=== PATIENT | male | born 1955 | race Caucasian/White ===

== ENCOUNTER 2019-11-06 06:58 | Day surgery (SDC) | payer OTHER ==
--- NOTE | 2019-11-01 19:08 | EKG REPORT ---
SEVERITY:- OTHERWISE NORMAL ECG - SINUS RHYTHM BORDERLINE RIGHT AXIS DEVIATION : Confirmed by: Catalina Costa MD 01-Nov-2019 19:07:19
[~2019-11-06 06:58] MED LIST: LACTATED RINGERS 1000 ML IV PRN; LIDOCAINE 0.5% INJ-PF (5 MG/ML) 50 ML SDV SUBCUT PRN
[2019-11-06] MEDS ORDERED: FENTANYL CITRATE INJ/PF 100 MCG/2 ML AMPUL ONE (07:27)
[2019-11-06] MEDS ORDERED: MIDAZOLAM 2 MG/2 ML INJ ONE (07:27)
[2019-11-06] MEDS ORDERED: PROPOFOL INJ 200 MG/20 ML VIAL IV ONE (07:27)
[2019-11-06] MEDS ORDERED: PROMETHAZINE HCL INJ 25 MG/1 ML VIAL IV PRN ×2 (08:28)
[2019-11-06] MEDS ORDERED: MEPERIDINE HCL/PF INJ 25 MG/1 ML DISP.SYRIN IV PRN (08:28)
[2019-11-06] MEDS ORDERED: OXYCODONE-ACETAMINOPHEN 5-325 MG TABLET PO PRN ×2 (08:28)
[2019-11-06] MEDS ORDERED: DIPHENHYDRAMINE HCL 50 MG/ML VIAL IV PRN (08:28)
[2019-11-06] MEDS ORDERED: FENTANYL CITRATE INJ/PF 100 MCG/2 ML AMPUL IV PRN ×3 (08:28)
--- NOTE | 2019-11-06 09:21 | Discharge Summary ---
Discharge Summary (SDC) - Discharge Final Diagnosis: anal stenosis Date of Surgery: 11/06/19 Discharge Date: 11/06/19 Condition: Good Forms: ASU Anesthesia D/C Instruction, Discharge POC-Surgical Service Treatment or Instructions: [address] [address] POST ENDOSCOPY DISCHARGE INSTRUCTIONS 1. Diet: Start clear liquids that a regular diet as tolerated. 2. Resume all preoperative medications. All oral anticoagulants and aspirins can be resumed 24 hours after procedure. 3. If a polypectomy was performed some bleeding per rectum may occur. This should stop within 3 days. If not, please contact the office. 4. If you had a colonoscopy you may experience some bloating and delayed return of normal bowel function for several days, your regular bowel movement pattern should resume within a week. 5. Please contact [facility] at to make an appointment with Dr. Patel for 1 to 3 weeks following procedure. 6. If you have any questions or concerns regarding your care,treatment plan or follow up, please contact our office. Referrals: HARLEY PATEL MD [ACTIVE STAFF] - 11/14/19 8:15 am Discharge Diet: As Tolerated Discharge Activity: Activity As Tolerated Report the Following to Your Physician Immediately: Nausea, Vomiting, Increase in Pain, Fever over 101 Degrees, Unusual Bleeding, Redness
--- NOTE | 2019-11-06 09:26 | Operative Report ---
Operative Report DATE OF SURGERY: 11/06/19 PREOPERATIVE DIAGNOSIS: 1. History of pelvic radiation, low anterior resection, protective ileostomy. 2. Anal pain POSTOPERATIVE DIAGNOSIS: Same with near complete anal stenosis due to scarring OPERATION: 1. Exam under anesthesia of the anus. 2. Limited flexible anoscopy. 3. Anal canal biopsies x2 SURGEON: HARLEY STALLINGS ANESTHESIA: LMAC TISSUE REMOVED OR ALTERED: Biopsies of anal canal COMPLICATIONS: None ESTIMATED BLOOD LOSS: Scant INTRAOPERATIVE FINDINGS: See below PROCEDURE: Patient was taken to the preop ambulatory area to the main operating room where LMAC anesthesia was induced. He is placed in the left lateral cubitus position. Surgical plan and surgical timeout were conducted. The perianal tissue was examined. There was no evidence of excoriation, or lesion. Lidocaine jelly was placed in the anal canal and index finger inserted into the canal to approximately 4- 5 cm. There was a mechanical blockage. The index finger was removed and the flexible adult colonoscope was advanced just inside the anal canal. The distal anal canal mucosa was viable, intact, then tapered to a very narrow opening, perhaps 2 to 3 mm diameter. Photos were taken. There was no evidence of tumor recurrence, or ulceration. 2 random biopsies of the anal canal mucosa at the point of tapering were taken with the cold forceps device and sent as anal canal biopsies. There was no way to advance the scope through this very narrow aperture. 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 The patient tolerated the procedure well. Was taken to recovery in stable condition. The results of the findings were shared with the patient's , and Dr. Schafer. Recommendations: 1. Continue current medical management per oncology service 2. No indication for further diagnostic or therapeutic intervention regarding patient's anal canal. Patient has fecal stream diverted via ileostomy. The anal stenosis is at least able to allow egress of mucus the proximal colon.
[2019-11-06 10:22] VITALS: BP 121/71
== END 2019-11-06 09:55 | disposition home or self-care (01) ==
LOC: OROUT 06:58
PROVIDERS: ATTEND Surgery
DX: K52.9 Noninfective gastroenteritis and colitis, unspecified (principal); K56.699 Other intestinal obstruction unspecified as to partial versus complete obstruction; E46 Unspecified protein-calorie malnutrition; Z85.048 Personal history of other malignant neoplasm of rectum, rectosigmoid junction, and anus; Z93.2 Ileostomy status; E78.00 Pure hypercholesterolemia, unspecified; Z79.899 Other long term (current) drug therapy; Z68.1 Body mass index [BMI] 19.9 or less, adult; Z85.05 Personal history of malignant neoplasm of liver; Z87.891 Personal history of nicotine dependence; Z03.818 Encounter for observation for suspected exposure to other biological agents ruled out
CPT/HCPCS: 46606; 93005; 87635; 88305 ×2; 93010; J2250; J3010; J2704; C9803; 902

== ENCOUNTER 2020-01-18 13:02 | Inpatient (IN) | payer OTHER ==
--- NOTE | 2020-01-18 13:24 | ER Document Report ---
ED Medical Screen (RME) - General Chief Complaint: Rectal Pain Stated Complaint: RETCAL DISCHARGE Time Seen by Provider: 01/18/20 13:22 Primary Care Provider: RENEE SMALLWOOD MD [Primary Care Provider] - Follow up as needed Notes: HPI: 64-year-old male with history of colorectal cancer who is been in remission who follows with Dr. Farley presenting for 2 days of worsening abdominal pain, passing stool and feces from the rectum. States that he had an ileostomy placed by Dr. Patel and had a limited colonoscopy over a month ago. States that he still has some lower bowel that is not attached to the bowel for the ileostomy as far as he is aware. Has not had fever or nausea. Saw his oncologist several days ago but was not having this issue then. PHYSICAL EXAMINATION: Limited exam in triage, rectal exam deferred in triage. Ileostomy right lower quadrant region and appears to have pink stoma I have greeted and performed a rapid initial assessment of this patient. A comprehensive ED assessment and evaluation of the patient, analysis of test results and completion of medical decision making process will be conducted by an additional ED providers. TRAVEL OUTSIDE OF THE [place] IN LAST 30 DAYS: No - Related Data Allergies/Adverse Reactions: No Known Allergies Allergy (Verified 11/06/19 07:09) Past Medical History - Social History Frequency of alcohol use: None Drug Abuse: None - Past Medical History Cardiac Medical History: Denies: Hx Coronary Artery Disease, Hx Heart Attack, Hx Hypertension Pulmonary Medical History: Denies: Hx Asthma, Hx Bronchitis, Hx COPD, Hx Pneumonia Neurological Medical History: Denies: Hx Cerebrovascular Accident, Hx Seizures Musculoskeltal Medical History: Denies Hx Arthritis - Immunizations Hx Diphtheria, Pertussis, Tetanus Vaccination: - UNSURE Physical Exam - Vital signs Vitals: Temp Pulse Resp BP Pulse Ox 98.1 F 94 20 104/79 96 01/18/20 13:07 01/18/20 13:07 01/18/20 13:07 01/18/20 13:07 01/18/20 13:07 Course - Vital Signs Vital signs: Temp Pulse Resp BP Pulse Ox 98.1 F 94 20 104/79 96 01/18/20 13:07 01/18/20 13:07 01/18/20 13:07 01/18/20 13:07 01/18/20 13:07 Doctor's Discharge - Discharge Referrals: RENEE SMALLWOOD MD [Primary Care Provider] - Follow up as needed
[2020-01-18 13:56] LABS: ABSOLUTE BASOPHILS # (AUTO) 0.1 10^3/uL (0.0-0.2); ABSOLUTE LYMPHOCYTES (AUTO) 1.7 10^3/uL (0.5-4.7); ABSOLUTE MONOCYTES (AUTO) 0.9 10^3/uL (0.1-1.4); ABSOLUTE NEUT (AUTO) 12.6 10^3/uL (1.7-8.2); BASOPHILS % (AUTO) 0.7 % (0-2); EOSINOPHILS % (AUTO) 0.1 % (0-6); HEMATOCRIT 39.9 % (37.9-51.0); HEMOGLOBIN 13.6 g/dL (13.5-17.0); LYMPHOCYTES % (AUTO) 10.9 % (13-45); MEAN CORPUSCULAR HEMOGLOBIN 30.3 pg (27.0-33.4); MEAN CORPUSCULAR HGB CONC 34.2 g/dL (32.0-36.0); MEAN CORPUSCULAR VOLUME 89 fl (80-97); MONOCYTES % (AUTO) 5.8 % (3-13); PLATELET COUNT 332 10^3/uL (150-450); RED BLOOD COUNT 4.51 10^6/uL (4.35-5.55); RED CELL DISTRIBUTION WIDTH 14.2 % (11.5-14.0); SEGMENTED NEUTROPHILS % (AUTO) 82.5 % (42-78); TOTAL CELLS COUNTED % (AUTO) 100 %; WHITE BLOOD COUNT 15.2 10^3/uL (4.0-10.5)
[2020-01-18 14:13] LABS: ALBUMIN 5.1 g/dL (3.5-5.0); ALKALINE PHOSPHATASE 58 U/L (38-126); ASPARTATE AMINO TRANSFERASE 37 U/L (17-59); BILIRUBIN,DIRECT 0.2 mg/dL (0.0-0.4); BILIRUBIN,TOTAL 1.1 mg/dL (0.2-1.3); BLOOD UREA NITROGEN 45 mg/dL (7-20); CALCIUM 10.5 mg/dL (8.4-10.2); CARBON DIOXIDE 16 mmol/L (22-30); CHLORIDE 100 mmol/L (98-107); GLUCOSE 130 mg/dL (75-110); POTASSIUM 5.1 mmol/L (3.6-5.0); TOTAL PROTEIN 9.4 g/dL (6.3-8.2)
[2020-01-18 14:16] LABS: ANION GAP 20 (5-19)
[2020-01-18] MEDS ORDERED: MORPHINE SULFATE 10 MG/ML INJ IV ONE (14:35)
[2020-01-18] MEDS ORDERED: NORMAL SALINE 1000 ML 1,000 ML IV ONE (14:39)
--- NOTE | 2020-01-18 14:39 | ER Document Report ---
ED GI/ - General Chief Complaint: Rectal Pain Stated Complaint: RETCAL DISCHARGE Time Seen by Provider: 01/18/20 13:22 Primary Care Provider: RENEE SMALLWOOD MD [Primary Care Provider] - Follow up as needed Notes: HPI: 64-year-old male with past medical history as recorded including colorectal cancer with an ileostomy and bowel resection around 2 years ago. Patient is followed by the oncologist Dr. Alexandra here. No recent chemotherapy or radiation for the last 6 months. Patient states he sometimes has some very clear discharge from the rectal region but over the last 2 days he initially had some bloody discharge followed by "fecal looking" discharge. He states some diffuse upper and lower abdominal intermittent pain with no radiation to the back. No vomiting or fevers. No chest pain or shortness of breath. ROS: See HPI All other review of systems reviewed and otherwise negative Reviewed vital signs and nursing note as charted by RN. PHYSICAL EXAM: CONSTITUTIONAL: Alert and oriented and responds appropriately to questions. Well-appearing; well-nourished HEAD: Normocephalic; atraumatic EYES: Sclera is pale ENT: Normal nose; no rhinorrhea; moist mucous membranes; pharynx without lesions noted NECK: Supple without meningismus; non-tender; no cervical lymphadenopathy, no masses CARD: Regular rate and rhythm; no murmurs; symmetric distal pulses RESP: Normal chest excursion without splinting or tachypnea; breath sounds clear and equal bilaterally; no wheezes, no rhonchi, no rales ABD/GI: Normal bowel sounds; non-distended; soft, ileostomy in place with a pink stump with no surrounding erythema. Discharge in the ileostomy is a brownish colored fluid without any obvious blood : With football scout present I did perform a rectal examination showing no obvious perirectal lesions. No tenderness to digital insertion. Brown-colored stool like material that is Hemoccult positive BACK: The back appears normal and is non-tender to palpation EXT: Normal ROM in all joints; non-tender to palpation; no edema SKIN: Patient skin does appear pale NEURO: CN 2-12 intact; 5/5 bilateral upper and lower extremity strength with sensation intact to light touch PSYCH: The patient's mood and manner are appropriate. Grooming and personal hygiene are appropriate. TRAVEL OUTSIDE OF THE [place] IN LAST 30 DAYS: No - Related Data Allergies/Adverse Reactions: No Known Allergies Allergy (Verified 11/06/19 07:09) Past Medical History - Social History Smoking Status: Former Smoker Frequency of alcohol use: None Drug Abuse: None Family History: Reviewed & Not Pertinent - Past Medical History Cardiac Medical History: Denies: Hx Coronary Artery Disease, Hx Heart Attack, Hx Hypertension Pulmonary Medical History: Denies: Hx Asthma, Hx Bronchitis, Hx COPD, Hx Pneumonia Neurological Medical History: Denies: Hx Cerebrovascular Accident, Hx Seizures Musculoskeletal Medical History: Denies Hx Arthritis - Immunizations Hx Diphtheria, Pertussis, Tetanus Vaccination: - UNSURE Physical Exam - Vital signs Vitals: Temp Pulse Resp BP Pulse Ox 98.1 F 94 20 104/79 96 01/18/20 13:07 01/18/20 13:07 01/18/20 13:07 01/18/20 13:07 01/18/20 13:07 Course - Re-evaluation Re-evalutation: Given the above history and physical, we will obtain basic labs, hemoglobin level, kidney function, and a CT scan of the abdomen and pelvis with contrast. I would like to evaluate for the possibility of acute blood loss anemia, acute renal failure, intra-abdominal pathology/obstruction, or any other acute problems. 01/18/20 14:40 Hemoglobin is stable. Patient appears to have acute renal failure. Elevated lipase. Liter of fluid has been ordered and we will also order urine sodium. 01/18/20 19:51 CT as recorded. I did speak directly to the surgeon Dr. Patel who is comfor table with the patient staying at this facility. I will admit the patient to the hospitalist service for dehydration. - Vital Signs Vital signs: Temp Pulse Resp BP Pulse Ox 98.1 F 94 16 152/118 H 99 01/18/20 13:07 01/18/20 13:07 01/18/20 17:31 01/18/20 17:31 01/18/20 17:31 - Laboratory Result Diagrams: 01/18/20 13:44 01/18/20 13:44 Laboratory results interpreted by me: 01/18/20 01/18/20 01/18/20 13:44 13:44 17:15 WBC 15.2 H RDW 14.2 H Lymph % (Auto) 10.9 L Absolute Neuts (auto) 12.6 H Seg Neutrophils % 82.5 H Sodium 135.5 L Potassium 5.1 H Carbon Dioxide 16 L Anion Gap 20 H BUN 45 H Creatinine 2.61 H Est GFR ( Amer) 30 L Est GFR (MDRD) Non-Af 25 L Glucose 130 H Calcium 10.5 H Total Protein 9.4 H Albumin 5.1 H Lipase 358.2 H Urine Protein 100 H Urine Blood MODERATE H Critical Care Note - Critical Care Note Total time excluding time spent on procedures (mins): 35 Discharge - Discharge Clinical Impression: Dehydration, Rectal discharge Acute renal failure Qualifiers: Acute renal failure type: unspecified Qualified Code(s): N17.9 - Acute kidney failure, unspecified Condition: Fair Disposition: ADMITTED INPATIENT Admitting Provider: Isabella (Hospitalist) Unit Admitted: Medical Floor Referrals: RENEE SMALLWOOD MD [Primary Care Provider] - Follow up as needed
[2020-01-18 17:36] LABS: APPEARANCE,URINE CLEAR; BILIRUBIN,URINE NEGATIVE (NEGATIVE); COLOR,URINE YELLOW; GLUCOSE, URINE NEGATIVE (NEGATIVE); KETONES,URINE NEGATIVE (NEGATIVE); LEUKOCYTE ESTERASE,URINE NEGATIVE (NEGATIVE); NITRITE,URINE NEGATIVE (NEGATIVE); PROTEIN,URINE 100 mg/dL (NEGATIVE); URINE SPECIFIC GRAVITY 1.023; UROBILINOGEN,URINE NEGATIVE mg/dL (<2.0)
--- NOTE | 2020-01-18 19:22 | RADIOLOGY REPORT (SQ) ---
EXAM DESCRIPTION: CT ABD/PELVIS ORAL ONLY IMAGES COMPLETED DATE/TIME: 01/18/2020 6:49 pm REASON FOR STUDY: eval for poss fistula betwn ileostomy/lower bowel COMPARISON: None. TECHNIQUE: CT scan of the abdomen and pelvis performed with oral contrast and no intravenous contras t. Images reviewed with lung, soft tissue, and bone windows. Reconstructed coronal and sagittal MPR i mages reviewed. All images stored on PACS. All CT scanners at this facility use dose modulation, iterative reconstruction, and/or weight based d osing when appropriate to reduce radiation dose to as low as reasonably achievable (ALARA). [facility]: Dose Right [facility]: CareDose [facility]: Dose Right [facility]: Teradose 4D [facility]: [employer] RADIATION DOSE: CT Rad equipment meets quality standard of care and radiation dose reduction techniq ues were employed. CTDIvol: 4.8 mGy. DLP: 244 mGy-cm.mGy. LIMITATIONS: None. FINDINGS: LOWER CHEST: No significant findings. No nodules or infiltrates. NON-CONTRASTED LIVER, SPLEEN, ADRENALS: Evaluation limited by lack of IV contrast. No identified sign ificant masses. PANCREAS: No masses. No peripancreatic inflammatory changes. GALLBLADDER: No identified stones by CT criteria. No inflammatory changes to suggest cholecystitis. RIGHT KIDNEY AND URETER: No solid masses. No significant calcification. No hydronephrosis or hydroure ter. LEFT KIDNEY AND URETER: No solid masses. No significant calcification. No hydronephrosis or hydrouret er. AORTA AND RETROPERITONEUM: Extensive calcifications in the iliac vessels. No aneurysm. No retroperit ni masses or adenopathy. BOWEL AND PERITONEAL CAVITY: Right lower quadrant ileostomy. Contrast present in the small bowel and in the ileostomy bag. No contrast visualized in the colon. No obvious masses or inflammatory lee es. No free fluid. APPENDIX: Normal. PELVIS, BLADDER, AND ABDOMINAL WALL: No abnormal pelvic masses. No abdominal wall hernias. Bladder un remarkable. BONES: No significant findings. Degenerative changes in the spine. OTHER: No other significant finding. IMPRESSION: 1. RIGHT LOWER QUADRANT ILEOSTOMY. CONTRAST PRESENT IN THE SMALL BOWEL AND IN THE OSTOMY BAG. NO CO NTRAST VISUALIZED IN THE COLON. 2. OTHER CHRONIC FINDINGS ABOVE. NO OTHER SIGNIFICANT OR ACUTE ABDOMINAL PROCESS. TECHNICAL DOCUMENTATION: JOB ID: [id number] Quality ID # [id number]: Final reports with documentation of one or more dose reduction techniques (e.g., Au tomated exposure control, adjustment of the mA and/or kV according to patient size, use of iterative reconstruction technique) 2010 [id number]- All Rights Reserved Reading location - IP/workstation name: [email or web address]
[2020-01-18] MEDS ORDERED: IPRATROPIUM/ALBUTEROL 0.5-2.5 MG/3 ML AMPUL NEB PRN (20:56)
[2020-01-18] MEDS ORDERED: PROMETHAZINE HCL INJ 25 MG/1 ML VIAL IV PRN (20:56)
[2020-01-18] MEDS ORDERED: OXYCODONE-ACETAMINOPHEN 5-325 MG TABLET PO PRN (20:56)
[2020-01-18] MEDS ORDERED: ACETAMINOPHEN 325 MG TABLET PO PRN (20:56)
[2020-01-18] MEDS ORDERED: ONDANSETRON HCL INJ/PF 4 MG/2 ML SDV IV PRN (20:56)
[2020-01-18] MEDS ORDERED: ZOLPIDEM TARTRATE 5 MG TABLET PO PRN (20:56)
--- NOTE | 2020-01-18 21:21 | PDOC H&P ---
History of Present Illness Admission Date/PCP: 01/18/20 20:11 RENEE SMALLWOOD MD History of Present Illness: ECHO CARTAGENA is a 64 year old male past medical history of colorectal cancer, st atus post chemoradiation and diverting ileostomy x2 years presenting to ED complaining of excessive feculent material expressed from his rectum, low appetite, weakness, and insomnia for the last 4 days. Patient is stating that he has already finished with his chemoradiation 2 years ago and he is cancer free, as part of his treatment he had a diverting ileostomy which was supposed to be reanastomosed but unfortunately the residual bowel became necrotic and patient was unable to be reanastomosed. Patient is stating that he used to get mucousy discharge from his rectum which he was told that was normal, however recently he has noticed that he is expressing fecal material from his rectum which is unusual to him. Patient also endorsing very low appetite and is stating that he is afraid to eat because whenever he eats his fecal discharge increases from his rectum " it just goes through me". Patient denies any headache, fever, chills, chest pain, shortness of breath, nausea, vomiting, abdominal pain, recent sick contact, being exposed to anybody with COVID-like symptoms. As per patient he is in remission and his last chemo-radiation was 2 years ago. In ED he was noted to have leukocytosis, hyperkalemia, elevated creatinine, mildly elevated lipase, CT abdomen pelvis with oral contrast showed right lower quadrant ileostomy, contrast present in the small bowel all in the ostomy bag. No contrast visualized in the colon. Dr. Patel from surgery was consulted and as per ED physician he stated that patient could be admitted here and he could be consulted. Past Medical History Cardiac Medical History: Denies: Coronary Artery Disease, Myocardial Infarction, Hypertension Pulmonary Medical History: Denies: Asthma, Bronchitis, Chronic Obstructive Pulmonary Disease (COPD), Pneumonia Neurological Medical History: Denies: Seizures Musculoskeltal Medical History: Denies: Arthritis Hematology: Reports: Anemia Social History Smoking Status: Former Smoker Drugs: None Family History Family History: Reviewed & Not Pertinent Parental Family History Reviewed: Yes Children Family History Reviewed: Yes Sibling(s) Family History Reviewed.: Yes Medication/Allergy Home Medications: Atorvastatin Calcium [Lipitor 10 mg Tablet] 10 mg PO BID 11/01/19 Megestrol Acetate 1 tab PO DAILY 11/01/19 Oxycodone HCl [Oxycodone HCl ER] 10 mg PO BID 11/01/19 Allergies/Adverse Reactions: No Known Allergies Allergy (Verified 11/06/19 07:09) Review of Systems Review of Systems: as per hpi Physical Exam Vital Signs: Temp Pulse Resp BP Pulse Ox 98.1 F 94 18 138/82 H 99 01/18/20 13:07 01/18/20 13:07 01/18/20 20:01 01/18/20 20:01 01/18/20 20:01 Intake & Output 01/17/20 01/18/20 01/19/20 06:59 06:59 06:59 Intake Total 1000 Balance 1000 Weight 54.431 kg General appearance: PRESENT: no acute distress, thin, other - Appears very dehydrated Head exam: PRESENT: atraumatic, normocephalic Respiratory exam: PRESENT: clear to auscultation meli. ABSENT: rales, rhonchi, wheezes Cardiovascular exam: PRESENT: RRR. ABSENT: diastolic murmur, rubs, systolic murmur GI/Abdominal exam: PRESENT: normal bowel sounds, soft, other - Ileostomy bag in place, filled with liquid feculent material.. ABSENT: distended, guarding, mass, organolmegaly, rebound, tenderness Extremities exam: PRESENT: full ROM. ABSENT: calf tenderness, clubbing, pedal edema Neurological exam: PRESENT: alert, awake, oriented to person, oriented to place, oriented to time, oriented to situation, CN II-XII grossly intact. ABSENT: motor sensory deficit Skin exam: PRESENT: dry Results Laboratory Results: 01/18/20 13:44 01/18/20 13:44 01/18/20 01/18/20 01/18/20 13:44 13:44 17:15 WBC 15.2 H RBC 4.51 Hgb 13.6 Hct 39.9 MCV 89 MCH 30.3 MCHC 34.2 RDW 14.2 H Plt Count 332 Seg Neutrophils % 82.5 H Sodium 135.5 L Potassium 5.1 H Chloride 100 Carbon Dioxide 16 L Anion Gap 20 H BUN 45 H Creatinine 2.61 H Est GFR ( Amer) 30 L Glucose 130 H Calcium 10.5 H Total Bilirubin 1.1 AST 37 Alkaline Phosphatase 58 Total Protein 9.4 H Albumin 5.1 H Lipase 358.2 H Urine Color YELLOW Urine Appearance CLEAR Urine pH 5.0 Ur Specific Reliance 1.023 Urine Protein 100 H Urine Glucose (UA) NEGATIVE Urine Ketones NEGATIVE Urine Blood MODERATE H Urine Nitrite NEGATIVE Ur Leukocyte Esterase NEGATIVE Urine WBC (Auto) 0 Urine RBC (Auto) 0 Impressions: Abdomen/Pelvis CT 01/18/20 00:00 IMPRESSION: 1. RIGHT LOWER QUADRANT ILEOSTOMY. CONTRAST PRESENT IN THE SMALL BOWEL AND IN THE OSTOMY BAG. NO CONTRAST VISUALIZED IN THE COLON. 2. OTHER CHRONIC FINDINGS ABOVE. NO OTHER SIGNIFICANT OR ACUTE ABDOMINAL PROCESS. Assessment and Plan - Diagnosis (1) ROSANA (acute kidney injury) Is this a current diagnosis for this admission?: Yes Plan: Most likely prerenal due to low p.o. intake. Admit to IMCU, monitor electrolytes and fluid, cautious volume resuscitation guided by volume status, avoid nephrotoxic meds. If no improvement will get nephrology consult. (2) Cachexia Is this a current diagnosis for this admission?: Yes Plan: BMI of 17.7. Likely the consequence of underlying malignancy and low p.o. intake. We will start on appetite stimulant, encourage frequent snacking, consult registered dietitian. (3) History of colorectal cancer Is this a current diagnosis for this admission?: Yes Plan: History of colorectal cancer status post surgery and chemoradiation. Followed by Dr. Farley as outpatient. We will consult Dr. Farley. (4) Hyperkalemia Is this a current diagnosis for this admission?: Yes Plan: No acute EKG changes. Hyperkalemia protocol. Potassium level tomorrow. (5) Dehydration Is this a current diagnosis for this admission?: Yes Plan: Due to low p.o. intake and excessive ostomy loss. Cautious volume restriction guided by volume status, monitor electrolytes and volume status. (6) Rectal discharge Is this a current diagnosis for this admission?: Yes Plan: As per patient he is having excessive feculent discharge from his rectum which is unusual. Stool guaiac is positive. CT abdomen pelvis with oral contrast did not show any acute abnormalities. Surgery and oncology has been consulted. Pending recommendations. (7) Malnutrition Qualifiers: Malnutrition type: protein-calorie malnutrition Protein-calorie malnutrition severity: severe Qualified Code(s): E43 - Unspecified severe protein-calorie malnutrition Is this a current diagnosis for this admission?: Yes Plan: BMI 17.7. As above. - Time Time Spent with patient: 35 or more minutes Medications reviewed and adjusted accordingly: Yes Anticipated Discharge Disposition: Home with Home Health Anticipated Discharge Timeframe: within 72 hours
[2020-01-18] MEDS: DEXTROSE 5%-WATER 1000 ML 1,000 ML IV PRN (22:14)
[2020-01-18] MEDS: FAMOTIDINE 20 MG TABLET PO SCH (22:15)
[2020-01-19] MEDS: DEXTROSE 5%-WATER 1000 ML 1,000 ML IV PRN ×2 (05:11→18:52)
[2020-01-19 06:29] LABS: ABSOLUTE BASOPHILS # (AUTO) 0.1 10^3/uL (0.0-0.2); ABSOLUTE LYMPHOCYTES (AUTO) 2.2 10^3/uL (0.5-4.7); ABSOLUTE MONOCYTES (AUTO) 0.9 10^3/uL (0.1-1.4); ABSOLUTE NEUT (AUTO) 9.3 10^3/uL (1.7-8.2); BASOPHILS % (AUTO) 0.8 % (0-2); EOSINOPHILS % (AUTO) 0.2 % (0-6); HEMATOCRIT 33.7 % (37.9-51.0); HEMOGLOBIN 11.7 g/dL (13.5-17.0); LYMPHOCYTES % (AUTO) 17.5 % (13-45); MEAN CORPUSCULAR HEMOGLOBIN 30.5 pg (27.0-33.4); MEAN CORPUSCULAR HGB CONC 34.6 g/dL (32.0-36.0); MEAN CORPUSCULAR VOLUME 88 fl (80-97); MONOCYTES % (AUTO) 6.8 % (3-13); PLATELET COUNT 266 10^3/uL (150-450); RED BLOOD COUNT 3.82 10^6/uL (4.35-5.55); RED CELL DISTRIBUTION WIDTH 14.1 % (11.5-14.0); SEGMENTED NEUTROPHILS % (AUTO) 74.7 % (42-78); TOTAL CELLS COUNTED % (AUTO) 100 %; WHITE BLOOD COUNT 12.5 10^3/uL (4.0-10.5)
[2020-01-19 06:33] LABS: ALBUMIN 4.5 g/dL (3.5-5.0); ALKALINE PHOSPHATASE 46 U/L (38-126); ANION GAP 14 (5-19); ASPARTATE AMINO TRANSFERASE 34 U/L (17-59); BILIRUBIN,DIRECT 0.3 mg/dL (0.0-0.4); BILIRUBIN,TOTAL 1.2 mg/dL (0.2-1.3); BLOOD UREA NITROGEN 40 mg/dL (7-20); CALCIUM 9.6 mg/dL (8.4-10.2); CARBON DIOXIDE 20 mmol/L (22-30); CHLORIDE 99 mmol/L (98-107); GLUCOSE 92 mg/dL (75-110); PHOSPHORUS 4.2 mg/dL (2.5-4.5); POTASSIUM 4.3 mmol/L (3.6-5.0); TOTAL PROTEIN 8.3 g/dL (6.3-8.2)
[2020-01-19] MEDS: MEGESTROL ACETATE 20 MG TABLET PO SCH (11:07)
--- NOTE | 2020-01-19 11:54 | PDOC CONSULTATION ---
Consultation Consult Date: 01/19/20 Attending physician:: DI RODRIGUEZ Provider Consulted: HARLEY STALLINGS Consult reason:: Anal stenosis History of Present Illness Admission Date/PCP: 01/18/20 20:11 RENEE SMALLWOOD MD History of Present Illness: ECHO CARTAGENA is a 64 year old male Patient is a 64-year-old white male, well-known to me, 2-month status post endoscopic evaluation of his rectal stump. Patient is 2 years status post low anterior resection, neoadjuvant chemo radiation therapy with protective ileostomy. Surgery was performed at [facility]. No medical records, including operative notes, have been reviewed by this information resource consultant. My impression is that the patient, having demonstrated no evidence of recurrent disease, was evaluated for ileostomy takedown, however was found to have a near stenosis of his anastomosis likely complicated by pelvic radiation. Therefore his ileostomy has been maintained. 2 months ago I performed proctoscopy, and found him to have a 4 to 5 cm anal pocket, near stricture, with a hole opening, unable to advance scope proximally. Apices performed showed no evidence of recurrent cancer. Now the patient is admitted to the hospital with increased feculent drainage per anus increased ileostomy output, dehydration and acute kidney injury. Feels better after having evacuated a significant amount of liquid stool per anus. There was no clinical evidence of sepsis. Past Medical History Past Medical History: As above Cardiac Medical History: Denies: Coronary Artery Disease, Myocardial Infarction, Hypertension Pulmonary Medical History: Denies: Asthma, Bronchitis, Chronic Obstructive Pulmonary Disease (COPD), Pneumonia Neurological Medical History: Denies: Seizures Musculoskeltal Medical History: Denies: Arthritis Psychiatric Medical History: Denies: Depression Hematology: Reports: Anemia Past Surgical History Past Surgical History: As above including port placement Social History Smoking Status: Former Smoker Electronic Cigarette use?: No Number of Years Smokin Last Time Smoked: 2017 Frequency of Alcohol Use: None Hx Recreational Drug Use: No Drugs: None Hx Prescription Drug Abuse: No Family History Family History: None, Reviewed & Not Pertinent Parental Family History Reviewed: No Children Family History Reviewed: No Sibling(s) Family History Reviewed.: No Medication/Allergy Home Medications: Lorazepam [Ativan 1 mg Tablet] 1 mg PO BID 01/19/20 Megestrol Acetate [Megace [place] 400 mg/10 ml Udcup] 20 ml PO DAILY 01/19/20 Oxycodone HCl [Oxy-Ir 5 mg Tablet] 10 mg PO BID 01/19/20 Allergies/Adverse Reactions: No Known Allergies Allergy (Verified 11/06/19 07:09) Review of Systems Constitutional: PRESENT: as per HPI - Patient in usual state of fair health; chronic weight loss, anemia, deconditioned state; no acute changes. Eyes: ABSENT: visual disturbances Ears: ABSENT: hearing changes Nose, Mouth, and Throat: PRESENT: other - Historically very poor dentition Gastrointestinal: PRESENT: other - Increased ileostomy output in the last 48 hours; see HPI Musculoskeletal: PRESENT: back pain Physical Exam Vital Signs: Temp Pulse Resp BP Pulse Ox 97.9 F 98 16 118/85 100 01/19/20 08:52 01/19/20 10:14 01/19/20 10:14 01/19/20 08:00 01/19/20 10:14 Intake & Output 01/18/20 01/19/20 01/20/20 06:59 06:59 06:59 Intake Total 2100 Output Total 220 Balance 1880 Weight 57.7 kg General appearance: PRESENT: no acute distress Head exam: PRESENT: atraumatic Eye exam: PRESENT: EOMI Teeth exam: PRESENT: poor dentation - Poor dentition Neck exam: PRESENT: full ROM Respiratory exam: PRESENT: clear to auscultation meli GI/Abdominal exam: PRESENT: other - Abdomen examined. Scaphoid. No peritoneal signs. Ileostomy appliance with underlying protuberant ileostomy proper; appears to be an end ileostomy Rectal exam not performed Neurological exam: PRESENT: oriented to person, oriented to place, oriented to time, oriented to situation Psychiatric exam: PRESENT: anxious Results Laboratory Results: 01/19/20 05:31 01/19/20 05:31 01/18/20 01/18/20 01/18/20 13:44 13:44 17:15 WBC 15.2 H RBC 4.51 Hgb 13.6 Hct 39.9 MCV 89 MCH 30.3 MCHC 34.2 RDW 14.2 H Plt Count 332 Seg Neutrophils % 82.5 H Sodium 135.5 L Potassium 5.1 H Chloride 100 Carbon Dioxide 16 L Anion Gap 20 H BUN 45 H Creatinine 2.61 H Est GFR ( Amer) 30 L Glucose 130 H Calcium 10.5 H Phosphorus Magnesium Total Bilirubin 1.1 AST 37 Alkaline Phosphatase 58 Total Protein 9.4 H Albumin 5.1 H Lipase 358.2 H Urine Color YELLOW Urine Appearance CLEAR Urine pH 5.0 Ur Specific [place] 1.023 Urine Protein 100 H Urine Glucose (UA) NEGATIVE Urine Ketones NEGATIVE Urine Blood MODERATE H Urine Nitrite NEGATIVE Ur Leukocyte Esterase NEGATIVE Urine WBC (Auto) 0 Urine RBC (Auto) 0 01/19/20 01/19/20 05:31 05:31 WBC 12.5 H RBC 3.82 L Hgb 11.7 L Hct 33.7 L MCV 88 MCH 30.5 MCHC 34.6 RDW 14.1 H Plt Count 266 Seg Neutrophils % 74.7 Sodium 133.3 L Potassium 4.3 Chloride 99 Carbon Dioxide 20 L Anion Gap 14 BUN 40 H Creatinine 2.10 H Est GFR ( Amer) 39 L Glucose 92 Calcium 9.6 Phosphorus 4.2 Magnesium 2.0 Total Bilirubin 1.2 AST 34 Alkaline Phosphatase 46 Total Protein 8.3 H Albumin 4.5 Lipase Urine Color Urine Appearance Urine pH Ur Specific [place] Urine Protein Urine Glucose (UA) Urine Ketones Urine Blood Urine Nitrite Ur Leukocyte Esterase Urine WBC (Auto) Urine RBC (Auto) Impressions: Abdomen/Pelvis CT 01/18/20 00:00 IMPRESSION: 1. RIGHT LOWER QUADRANT ILEOSTOMY. CONTRAST PRESENT IN THE SMALL BOWEL AND IN THE OSTOMY BAG. NO CONTRAST VISUALIZED IN THE COLON. 2. OTHER CHRONIC FINDINGS ABOVE. NO OTHER SIGNIFICANT OR ACUTE ABDOMINAL PROCESS. Assessment & Plan - Diagnosis (1) Rectal/anal stenosis Is this a current diagnosis for this admission?: Yes Plan: Impression: Chronic anal stenosis at site of low anterior colorectal resection anastomosis, now with passage of stool; no evidence of sepsis; patient experiencing relief, with continued good ileostomy output Discussion: 1. Reviewed again my understanding of patient's anatomy which includes a diver ting end ileostomy, previous low anterior resection complicated by anastomotic stricture with retention of right colon, transverse colon and majority of left colon. On CT scan patient has retained stool and gas in the proximal colon, but no evidence of obstruction. He is now passing some gas and stool through his stricture. 2. Although this is somewhat unusual after a 2-year hiatus, not unheard of. In the absence of sepsis, clinical deterioration, etc., I would suggest no further intervention. Additional maneuvers such as repeat endoscopy,with stricture dilatation to facilitate colonic drainage, a be fraught with risks that outweigh potential benefits. 3. This was discussed with patient. I believe understands and agrees to maintain his current course of therapy. 4. Surgery will sign off at this time. Reconsult if clinically indicated. (2) ROSANA (acute kidney injury) Is this a current diagnosis for this admission?: Yes (3) Cachexia Is this a current diagnosis for this admission?: Yes (4) Dehydration Is this a current diagnosis for this admission?: Yes (5) History of colorectal cancer Is this a current diagnosis for this admission?: Yes - Time Time Spent: 50 to 70 Minutes Smoking Cessation Education: over 10 minutes Medications reviewed and adjusted accordingly: Yes Anticipated discharge: Home Anticipated DC Timeframe: within 72 hours
[2020-01-19] MEDS ORDERED: LORAZEPAM 1 MG TABLET PO PRN (19:36)
--- NOTE | 2020-01-19 19:36 | PDOC PROGRESS REPORT ---
Subjective Progress Note for:: 01/19/20 Subjective:: Patient informs me of his diarrhea via rectum. Otherwise denied significant pain today. Discussed case with surgeon who states that there is really nothing to do. Said he was able to keep breakfast down this morning. Reason For Visit: ROSANA,HYPERKALEMIA,DEHYDRATION Physical Exam Vital Signs: Temp Pulse Resp BP Pulse Ox 98.1 F 94 21 H 128/69 H 99 01/19/20 16:41 01/19/20 16:41 01/19/20 16:41 01/19/20 16:41 01/19/20 16:41 Intake & Output 01/18/20 01/19/20 01/20/20 06:59 06:59 06:59 Intake Total 2100 1240 Output Total 220 Balance 1880 1240 Weight 57.7 kg 57.7 kg General appearance: PRESENT: no acute distress, cooperative Neck exam: ABSENT: JVD Respiratory exam: PRESENT: clear to auscultation meli, unlabored Cardiovascular exam: PRESENT: +S1, +S2 Neurological exam: PRESENT: alert, awake Psychiatric exam: ABSENT: agitated, anxious Results Laboratory Results: 01/19/20 05:31 01/19/20 05:31 01/19/20 01/19/20 05:31 05:31 WBC 12.5 H RBC 3.82 L Hgb 11.7 L Hct 33.7 L MCV 88 MCH 30.5 MCHC 34.6 RDW 14.1 H Plt Count 266 Seg Neutrophils % 74.7 Sodium 133.3 L Potassium 4.3 Chloride 99 Carbon Dioxide 20 L Anion Gap 14 BUN 40 H Creatinine 2.10 H Est GFR ( Amer) 39 L Glucose 92 Calcium 9.6 Phosphorus 4.2 Magnesium 2.0 Total Bilirubin 1.2 AST 34 Alkaline Phosphatase 46 Total Protein 8.3 H Albumin 4.5 Impressions: Abdomen/Pelvis CT 01/18/20 00:00 IMPRESSION: 1. RIGHT LOWER QUADRANT ILEOSTOMY. CONTRAST PRESENT IN THE SMALL BOWEL AND IN THE OSTOMY BAG. NO CONTRAST VISUALIZED IN THE COLON. 2. OTHER CHRONIC FINDINGS ABOVE. NO OTHER SIGNIFICANT OR ACUTE ABDOMINAL PROCESS. Assessment and Plan - Diagnosis (1) Acute renal failure Qualifiers: Acute renal failure type: unspecified Qualified Code(s): N17.9 - Acute kidney failure, unspecified Is this a current diagnosis for this admission?: Yes (2) Rectal/anal stenosis Is this a current diagnosis for this admission?: Yes (3) Cachexia Is this a current diagnosis for this admission?: Yes (4) Dehydration Is this a current diagnosis for this admission?: Yes (5) History of colorectal cancer Is this a current diagnosis for this admission?: Yes (6) Hyperkalemia Is this a current diagnosis for this admission?: Yes (7) Malnutrition Qualifiers: Malnutrition type: protein-calorie malnutrition Protein-calorie malnutrition severity: severe Qualified Code(s): E43 - Unspecified severe protein-calorie malnutrition Is this a current diagnosis for this admission?: Yes - Plan Summary Summary: Continue fluids. Renal failure. Hyperkalemia has resolved on a.m. labs. Creatinine seems to be improving Discussed case with surgery who recommends no intervention at this time. Refer to surgery's notes. - Time Time Spent with patient: Less than 15 minutes Anticipated Discharge Disposition: Home, Self Care Anticipated Discharge Timeframe: within 36 hours
[2020-01-20] MEDS: FAMOTIDINE 20 MG TABLET PO SCH ×2 (00:05→21:15)
[2020-01-20] MEDS: DEXTROSE 5%-WATER 1000 ML 1,000 ML IV PRN (03:06)
[2020-01-20 06:04] LABS: HEMATOCRIT 34.1 % (37.9-51.0); HEMOGLOBIN 11.9 g/dL (13.5-17.0); MEAN CORPUSCULAR HEMOGLOBIN 30.9 pg (27.0-33.4); MEAN CORPUSCULAR HGB CONC 34.9 g/dL (32.0-36.0); MEAN CORPUSCULAR VOLUME 89 fl (80-97); PLATELET COUNT 263 10^3/uL (150-450); RED BLOOD COUNT 3.86 10^6/uL (4.35-5.55); RED CELL DISTRIBUTION WIDTH 14.4 % (11.5-14.0); WHITE BLOOD COUNT 9.8 10^3/uL (4.0-10.5)
[2020-01-20 06:32] LABS: ALBUMIN 4.4 g/dL (3.5-5.0); ALKALINE PHOSPHATASE 52 U/L (38-126); ANION GAP 13 (5-19); ASPARTATE AMINO TRANSFERASE 40 U/L (17-59); BILIRUBIN,DIRECT 0.3 mg/dL (0.0-0.4); BILIRUBIN,TOTAL 0.8 mg/dL (0.2-1.3); BLOOD UREA NITROGEN 40 mg/dL (7-20); CALCIUM 9.6 mg/dL (8.4-10.2); CARBON DIOXIDE 19 mmol/L (22-30); CHLORIDE 99 mmol/L (98-107); GLUCOSE 98 mg/dL (75-110); POTASSIUM 3.7 mmol/L (3.6-5.0); TOTAL PROTEIN 8.2 g/dL (6.3-8.2)
[2020-01-20] MEDS: MEGESTROL ACETATE 20 MG TABLET PO SCH (09:48)
--- NOTE | 2020-01-20 09:54 | RADIOLOGY REPORT (SQ) ---
EXAM DESCRIPTION: U/S RETROPERITON (RENAL/AORTA) IMAGES COMPLETED DATE/TIME: 01/20/2020 9:33 am REASON FOR STUDY: elevated creatinine. worsened ckd COMPARISON: None. TECHNIQUE: Dynamic and static grayscale images acquired of the kidneys and bladder and recorded on P ACS. Additional selected color Doppler and spectral images recorded. LIMITATIONS: None. FINDINGS: RIGHT KIDNEY: Normal size measuring 9.3 cm. Normal echogenicity. No solid or suspicious ma sses. 8 mm cyst within the interpolar region. No hydronephrosis. No calcifications. LEFT KIDNEY: Normal size measuring 9.3 cm. Normal echogenicity. No definite solid masses. Incomple tely characterize hypodense lesion measuring 11 x 8 x 6 mm within the interpolar region. No hydronep hrosis. No calcifications. BLADDER: No masses. OTHER FINDINGS: No other significant finding. IMPRESSION: 1. No hydronephrosis. 2. Small bilateral hypodense renal lesions, likely cysts but incompletely characterized on the left. TECHNICAL DOCUMENTATION: JOB ID: [id number] 2010 [employer]- All Rights Reserved Reading location - IP/workstation name: SAM
[2020-01-20] MEDS ORDERED: NORMAL SALINE 1000 ML 1,000 ML IV ONE (10:15)
[2020-01-20] MEDS ORDERED: NORMAL SALINE 1000 ML 1,000 ML IV PRN (10:18)
--- NOTE | 2020-01-20 10:23 | PDOC PROGRESS REPORT ---
Subjective Progress Note for:: 01/20/20 Subjective:: Patient states he was able to eat well yesterday but only ate a little bit this morning. They feel he can feel like eating more this morning. He states that this point that he is not having much stool from his anus but still having a good quality of stool from his ostomy bag. States stool in his ostomy bag is been more formed. He thinks his kidney function being lower than before was from dehydration. Otherwise states that he has not quite been told he has c hronic kidney disease but his kidney function has been mentioned to him in the past. Reason For Visit: ROSANA,HYPERKALEMIA,DEHYDRATION Physical Exam Vital Signs: Temp Pulse Resp BP Pulse Ox 98.2 F 99 17 116/73 100 01/20/20 08:48 01/20/20 07:46 01/20/20 07:46 01/20/20 07:46 01/20/20 07:46 Intake & Output 01/19/20 01/20/20 01/21/20 06:59 06:59 06:59 Intake Total 2100 2590 120 Output Total 220 400 200 Balance 1880 2190 -80 Weight 57.7 kg 54.4 kg General appearance: PRESENT: no acute distress, cooperative Neck exam: ABSENT: JVD Respiratory exam: PRESENT: symmetrical, unlabored. ABSENT: tachypnea, wheezes Cardiovascular exam: PRESENT: RRR, +S1, +S2. ABSENT: tachycardia GI/Abdominal exam: PRESENT: soft. ABSENT: rebound, rigid, tenderness Neurological exam: PRESENT: alert, awake, oriented to person, oriented to place, oriented to time Psychiatric exam: ABSENT: agitated, anxious Focused psych exam: ABSENT: pressured speech Results Laboratory Results: 01/20/20 05:25 01/20/20 05:25 01/20/20 01/20/20 05:25 05:25 WBC 9.8 RBC 3.86 L Hgb 11.9 L Hct 34.1 L MCV 89 MCH 30.9 MCHC 34.9 RDW 14.4 H Plt Count 263 Sodium 130.9 L Potassium 3.7 Chloride 99 Carbon Dioxide 19 L Anion Gap 13 BUN 40 H Creatinine 2.11 H Est GFR ( Amer) 38 L Glucose 98 Calcium 9.6 Magnesium 2.0 Total Bilirubin 0.8 AST 40 Alkaline Phosphatase 52 Total Protein 8.2 Albumin 4.4 Impressions: Abdomen/Pelvis CT 01/18/20 00:00 IMPRESSION: 1. RIGHT LOWER QUADRANT ILEOSTOMY. CONTRAST PRESENT IN THE SMALL BOWEL AND IN THE OSTOMY BAG. NO CONTRAST VISUALIZED IN THE COLON. 2. OTHER CHRONIC FINDINGS ABOVE. NO OTHER SIGNIFICANT OR ACUTE ABDOMINAL PROCESS. Renal Ultrasound 01/20/20 00:00 IMPRESSION: 1. No hydronephrosis. 2. Small bilateral hypodense renal lesions, likely cysts but incompletely characterized on the left. Assessment and Plan - Diagnosis (1) Acute renal failure Qualifiers: Acute renal failure type: unspecified Qualified Code(s): N17.9 - Acute kidney failure, unspecified Is this a current diagnosis for this admission?: Yes (2) Rectal/anal stenosis Is this a current diagnosis for this admission?: Yes (3) Cachexia Is this a current diagnosis for this admission?: Yes (4) Dehydration Is this a current diagnosis for this admission?: Yes (5) History of colorectal cancer Is this a current diagnosis for this admission?: Yes (6) Hyperkalemia Is this a current diagnosis for this admission?: Yes (7) Malnutrition Qualifiers: Malnutrition type: protein-calorie malnutrition Protein-calorie malnutrition severity: severe Is this a current diagnosis for this admission?: Yes - Plan Summary Summary: Continue fluids. Renal failure. Hyperkalemia has resolved on a.m. labs. Creatinine seems to be improving Discussed case with surgery who recommends no intervention at this time. Refer to surgery's notes. 01/20/2020 Patient is able to eat small as he is loose diarrhea from his anus has almost fully resolved at this point. According to surgery, it seems he had a rectal stricture which may be starting to open up his BM via the anus. He denies fever or chills. His renal function seems to be improving down to 2.1 but has reached a river. He states that his fluids were no change in a timely manner after each bag finished yesterday. I will bolus a bag of normal saline and continue on continuous normal saline infusion. Check another BMP tomorrow Renal ultrasound obtained Nephrology consulted Encourage patient to continue to try to eat Continue Megace Check C. difficile - Time Time Spent with patient: 15-24 minutes Anticipated Discharge Disposition: Home, Self Care Anticipated Discharge Timeframe: within 36 hours
--- NOTE | 2020-01-20 10:43 | PDOC CONSULTATION ---
Consultation Consult Date: 01/20/20 Provider Consulted: RENEE SMALLWOOD Consult reason:: Hematology/Oncology consulation was requested for patient with a history of colon cancer. History of Present Illness Admission Date/PCP: 01/18/20 20:11 RENEE SMALLWOOD MD History of Present Illness: ECHO CARTAGENA is a 64 year old male who was diagnosed and treated for colon cancer in Feb 2017. He underwent surgery, chemotherapy and radiation and has been with no evidence of disease since July of 2018. He has an iliostomy which has been functioning well, but also has open rectal stoma which has been drain ing small amount of mucus since initial surgery. However, recently he has had increased rectal pain and discharge. Further scans and labs have not shown any evidence of recurrent cancer and Dr. Patel performed exam under anesthesia of the area and was not able to find any pathology. However, the day prior to admission, he had increased pain and then copious amounts of stool and blood from the anal stoma. His reports that he is in bed most days, has poor appetite, and is not able to gain any weight or strength. He recently has been trying to increase his walking and activity level. Past Medical History Cardiac Medical History: Denies: Coronary Artery Disease, Myocardial Infarction, Hypertension Pulmonary Medical History: Denies: Asthma, Bronchitis, Chronic Obstructive Pulmonary Disease (COPD), Pneumonia Neurological Medical History: Denies: Seizures Musculoskeltal Medical History: Denies: Arthritis Psychiatric Medical History: Denies: Depression Hematology: Reports: Anemia Social History Smoking Status: Former Smoker Electronic Cigarette use?: No Number of Years Smokin Last Time Smoked: 2017 Frequency of Alcohol Use: None Hx Recreational Drug Use: No Drugs: None Hx Prescription Drug Abuse: No Family History Family History: None, Reviewed & Not Pertinent Parental Family History Reviewed: Yes - Mother of lung cancer. Father with CAD. Children Family History Reviewed: No Sibling(s) Family History Reviewed.: No Medication/Allergy Home Medications: Lorazepam [Ativan 1 mg Tablet] 1 mg PO BID 01/19/20 Megestrol Acetate [Megace [place] 400 mg/10 ml Udcup] 20 ml PO DAILY 01/19/20 Oxycodone HCl [Oxy-Ir 5 mg Tablet] 10 mg PO BID 01/19/20 Allergies/Adverse Reactions: No Known Allergies Allergy (Verified 11/06/19 07:09) Review of Systems Constitutional: ABSENT: fever(s), headache(s) Eyes: ABSENT: visual disturbances Ears: ABSENT: hearing changes Nose, Mouth, and Throat: ABSENT: sore throat Cardiovascular: ABSENT: chest pain Respiratory: ABSENT: dyspnea Gastrointestinal: PRESENT: as per HPI, abdominal pain Genitourinary: ABSENT: dysuria Musculoskeletal: ABSENT: back pain Integumentary: ABSENT: rash Neurological: PRESENT: weakness Physical Exam Vital Signs: Temp Pulse Resp BP Pulse Ox 98.2 F 99 17 116/73 100 01/20/20 08:48 01/20/20 07:46 01/20/20 07:46 01/20/20 07:46 01/20/20 07:46 Intake & Output 01/19/20 01/20/20 01/21/20 06:59 06:59 06:59 Intake Total 2100 2590 120 Output Total 220 400 200 Balance 1880 2190 -80 Weight 57.7 kg 54.4 kg General appearance: PRESENT: no acute distress, thin Exam: Thin, cachectic male. Head exam: PRESENT: normocephalic Eye exam: PRESENT: EOMI Teeth exam: PRESENT: dental caries, poor dentation Neck exam: ABSENT: lymphadenopathy, tenderness Respiratory exam: PRESENT: clear to auscultation meli, unlabored Cardiovascular exam: PRESENT: RRR GI/Abdominal exam: PRESENT: soft. ABSENT: tenderness Extremities exam: ABSENT: pedal edema Neurological exam: PRESENT: alert, awake, oriented to person, oriented to place, oriented to time, oriented to situation Psychiatric exam: PRESENT: appropriate affect Skin exam: PRESENT: normal color Results Laboratory Results: 01/20/20 05:25 01/20/20 05:25 01/20/20 01/20/20 05:25 05:25 WBC 9.8 RBC 3.86 L Hgb 11.9 L Hct 34.1 L MCV 89 MCH 30.9 MCHC 34.9 RDW 14.4 H Plt Count 263 Sodium 130.9 L Potassium 3.7 Chloride 99 Carbon Dioxide 19 L Anion Gap 13 BUN 40 H Creatinine 2.11 H Est GFR ( Amer) 38 L Glucose 98 Calcium 9.6 Magnesium 2.0 Total Bilirubin 0.8 AST 40 Alkaline Phosphatase 52 Total Protein 8.2 Albumin 4.4 Impressions: Abdomen/Pelvis CT 01/18/20 00:00 IMPRESSION: 1. RIGHT LOWER QUADRANT ILEOSTOMY. CONTRAST PRESENT IN THE SMALL BOWEL AND IN THE OSTOMY BAG. NO CONTRAST VISUALIZED IN THE COLON. 2. OTHER CHRONIC FINDINGS ABOVE. NO OTHER SIGNIFICANT OR ACUTE ABDOMINAL PROCESS. Status: Image reviewed by me Assessment & Plan - Diagnosis (1) History of colorectal cancer Is this a current diagnosis for this admission?: Yes Plan: No evidence of disease on recent scans or by CEA levels. No actice treatment currently. (2) Malnutrition Qualifiers: Malnutrition type: protein-calorie malnutrition Protein-calorie malnutrition severity: severe Is this a current diagnosis for this admission?: Yes Plan: This has been an ongoing issue. He does respond to Megace, but this is only used intermittently. Long-term steroids should be avoided. He needs to increase his activity level. Recent TSH was normal. (3) Rectal discharge Is this a current diagnosis for this admission?: Yes Plan: Will discuss further with Dr. Patel.
--- NOTE | 2020-01-20 22:11 | PDOC CONSULTATION ---
Consultation Consult Date: 01/20/20 Provider Consulted: MARK SOLORZANO Consult reason:: ROSANA History of Present Illness Admission Date/PCP: 01/18/20 20:11 RENEE SCHAFER MD History of Present Illness: ECHO CARTAGENA is a 64 year old male with history of colorectal cancer diagnosed in February 2017 status post chemotherapy, radiation and diverting ileostomy. He stated that since Monday, January 16 he had experienced abdominal pain associated with unusually copious amount of feculent material from his rectal stoma. He admits decreased appetite, weakness and insomnia sleeping only for about 3 to 4 hours daily. He otherwise denies any nausea, vomiting, fever, chest pain, shortness of breath no headache. Initial evaluation showed a potassium of 5.1, BUN of 45, creatinine of 2.61 and bicarbonate of 16. In 2018 his creatinine ranged anywhere between 1.3-1.4. His renal ultrasound did not show any hydronephrosis. Patient was given 2 L of IV fluid bolus on presentation. This was followed by D5 water and currently he is on normal saline. Today he said his rectal drainage is completely resolved. His ileostomy output showed better consistently like usual. He does admit that he still feels tired though. He continues to not sleep very well. Dr. Farley and Dr. Patel has seen and evaluated the patient. Past Medical History Cardiac Medical History: Reports: Peripheral Vascular Disease Malignancy Medical History: Reports: Colorectal Cancer Musculoskeltal Medical History: Reports: Other - History of rib fractures Past Surgical History Past Surgical History: Reports: Ileostomy Social History Information Source: Patient Lives with: Family - With and 3 grandchildren Smoking Status: Former Smoker Electronic Cigarette use?: No Number of Years Smokin Last Time Smoked: 2017 Frequency of Alcohol Use: None Hx Recreational Drug Use: No Drugs: None Hx Prescription Drug Abuse: No Family History Family History: CAD - Father Parental Family History Reviewed: Yes Children Family History Reviewed: Yes Sibling(s) Family History Reviewed.: Yes Medication/Allergy Home Medications: Lorazepam [Ativan 1 mg Tablet] 1 mg PO BID 01/19/20 Megestrol Acetate [Megace [place] 400 mg/10 ml Udcup] 20 ml PO DAILY 01/19/20 Oxycodone HCl [Oxy-Ir 5 mg Tablet] 10 mg PO BID 01/19/20 Allergies/Adverse Reactions: No Known Allergies Allergy (Verified 11/06/19 07:09) Review of Systems All systems: reviewed and no additional remarkable complaints except as stated Review of Systems: Constitutional: ABSENT: chills, fever(s), headache(s), weight gain, weight loss; reports fatigue, poor appetite and insomnia Eyes: ABSENT: visual disturbances Ears: ABSENT: hearing changes Cardiovascular: ABSENT: chest pain, dyspnea on exertion, edema, orthropnea, palpitations Respiratory: ABSENT: cough, dyspnea, hemoptysis Gastrointestinal: ABSENT: constipation, diarrhea, hematemesis, hematochezia, nausea, vomiting; admits abdominal pain Genitourinary: ABSENT: dysuria, hematuria Musculoskeletal: ABSENT: joint swelling Integumentary: ABSENT: rash, wounds Neurological: ABSENT: abnormal gait, abnormal speech, confusion, dizziness, focal weakness, numbness, syncope Psychiatric: ABSENT: anxiety, depression Endocrine: ABSENT: cold intolerance, heat intolerance, polydipsia, polyuria Hematologic/Lymphatic: ABSENT: easy bleeding, easy bruising, lymphadenopathy Physical Exam Vital Signs: Temp Pulse Resp BP Pulse Ox 97.8 F 72 21 H 128/76 H 100 01/20/20 16:19 01/20/20 16:19 01/20/20 16:19 01/20/20 16:19 01/20/20 16:19 Intake & Output 01/19/20 01/20/20 01/21/20 06:59 06:59 06:59 Intake Total 2100 2590 1360 Output Total 220 400 650 Balance 1880 2190 710 Weight 57.7 kg 54.4 kg Exam: General appearance: No acute distress, cooperative, thin Head exam: PRESENT: atraumatic, normocephalic Eye exam: PRESENT: Conjunctiva Parc, EOMI, PERRLA. ABSENT: conjunctival injection, scleral icterus Mouth exam: PRESENT: moist, neck supple, tongue midline Neck exam: PRESENT: full ROM. ABSENT: carotid bruit, JVD, lymphadenopathy, thyromegaly Respiratory exam: PRESENT: clear to auscultation bilaterally. ABSENT: rales, rhonchi, stridor, wheezes Cardiovascular exam: PRESENT: RRR, +S1, +S2. ABSENT: systolic murmur Pulses: PRESENT: normal radial pulses, normal dorsalis pedis pulses GI/Abdominal exam: PRESENT: normal bowel sounds, soft. Ileostomy in the right lower quadrant ABSENT: guarding, mass, tenderness Rectal exam: Deferred Extremities exam: PRESENT: full ROM. ABSENT: calf tenderness, pedal edema Musculoskeletal: PRESENT: full ROM. ABSENT: deformity Neurological exam: PRESENT: alert, Awake, Oriented to person, Oriented to place, Oriented to time, reflexes normal, CN II-XII grossly intact. ABSENT: motor sensory deficit Psychiatric exam: PRESENT: appropriate affect, normal mood. ABSENT: homicidal ideation, suicidal ideation Skin exam: PRESENT: intact, dry, warm. ABSENT: rash Results Laboratory Results: 01/20/20 05:25 01/20/20 05:25 01/20/20 01/20/20 05:25 05:25 WBC 9.8 RBC 3.86 L Hgb 11.9 L Hct 34.1 L MCV 89 MCH 30.9 MCHC 34.9 RDW 14.4 H Plt Count 263 Sodium 130.9 L Potassium 3.7 Chloride 99 Carbon Dioxide 19 L Anion Gap 13 BUN 40 H Creatinine 2.11 H Est GFR ( Amer) 38 L Glucose 98 Calcium 9.6 Magnesium 2.0 Total Bilirubin 0.8 AST 40 Alkaline Phosphatase 52 Total Protein 8.2 Albumin 4.4 Impressions: Abdomen/Pelvis CT 01/18/20 00:00 IMPRESSION: 1. RIGHT LOWER QUADRANT ILEOSTOMY. CONTRAST PRESENT IN THE SMALL BOWEL AND IN THE OSTOMY BAG. NO CONTRAST VISUALIZED IN THE COLON. 2. OTHER CHRONIC FINDINGS ABOVE. NO OTHER SIGNIFICANT OR ACUTE ABDOMINAL PROCESS. Renal Ultrasound 01/20/20 00:00 IMPRESSION: 1. No hydronephrosis. 2. Small bilateral hypodense renal lesions, likely cysts but incompletely characterized on the left. Assessment & Plan - Diagnosis (1) ROSANA (acute kidney injury) Is this a current diagnosis for this admission?: Yes Plan: Nonoliguric. Baseline creatinine around 1.3-1.4 from records in 2018. This is due to acute prerenal azotemia secondary to poor intake. Currently slowly improving with IV fluids. Continue the same and continue to monitor kidney function and electrolytes. (2) Dehydration Is this a current diagnosis for this admission?: Yes (3) Metabolic acidosis Is this a current diagnosis for this admission?: Yes Plan: Due to ROSANA. Slowly improving with improvement of kidney function. (4) Rectal discharge Is this a current diagnosis for this admission?: Yes Plan: Currently resolved. Patient was evaluated by surgery, Dr. Patel. (5) Hyponatremia Is this a current diagnosis for this admission?: Yes Plan: Secondary to hypotonic fluid infusion. (6) Cachexia Is this a current diagnosis for this admission?: Yes Plan: Encourage increase oral intake. (7) History of colorectal cancer Is this a current diagnosis for this admission?: Yes Plan: Per Dr. Schafer there is no evidence of recurrence. - Notes Notes: Thank you very much for this consultation.
[2020-01-21 03:42] LABS: C DIFFICILE GDH NEGATIVE (NEGATIVE)
[2020-01-21 06:09] LABS: ABSOLUTE BASOPHILS # (AUTO) 0.1 10^3/uL (0.0-0.2); ABSOLUTE EOSINOPHILS # (AUTO) 0.2 10^3/uL (0.0-0.6); ABSOLUTE LYMPHOCYTES (AUTO) 1.6 10^3/uL (0.5-4.7); ABSOLUTE MONOCYTES (AUTO) 0.7 10^3/uL (0.1-1.4); ABSOLUTE NEUT (AUTO) 4.9 10^3/uL (1.7-8.2); BASOPHILS % (AUTO) 1.4 % (0-2); EOSINOPHILS % (AUTO) 2.7 % (0-6); HEMATOCRIT 29.3 % (37.9-51.0); HEMOGLOBIN 10.4 g/dL (13.5-17.0); LYMPHOCYTES % (AUTO) 21.4 % (13-45); MEAN CORPUSCULAR HEMOGLOBIN 31.2 pg (27.0-33.4); MEAN CORPUSCULAR HGB CONC 35.4 g/dL (32.0-36.0); MEAN CORPUSCULAR VOLUME 88 fl (80-97); MONOCYTES % (AUTO) 9.1 % (3-13); PLATELET COUNT 210 10^3/uL (150-450); RED BLOOD COUNT 3.32 10^6/uL (4.35-5.55); RED CELL DISTRIBUTION WIDTH 14.1 % (11.5-14.0); SEGMENTED NEUTROPHILS % (AUTO) 65.4 % (42-78); TOTAL CELLS COUNTED % (AUTO) 100 %; WHITE BLOOD COUNT 7.5 10^3/uL (4.0-10.5)
[2020-01-21 06:32] LABS: ALBUMIN 3.5 g/dL (3.5-5.0); ALKALINE PHOSPHATASE 41 U/L (38-126); ANION GAP 10 (5-19); ASPARTATE AMINO TRANSFERASE 30 U/L (17-59); BILIRUBIN,DIRECT 0.2 mg/dL (0.0-0.4); BILIRUBIN,TOTAL 0.4 mg/dL (0.2-1.3); BLOOD UREA NITROGEN 29 mg/dL (7-20); CALCIUM 8.4 mg/dL (8.4-10.2); CARBON DIOXIDE 17 mmol/L (22-30); CHLORIDE 108 mmol/L (98-107); GLUCOSE 84 mg/dL (75-110); POTASSIUM 3.5 mmol/L (3.6-5.0)
[2020-01-21] MEDS ORDERED: NORMAL SALINE 1000 ML 1,000 ML IV PRN (08:56)
--- NOTE | 2020-01-21 09:24 | PDOC CONSULTATION ---
Consultation Consult Date: 01/21/20 Attending physician:: RENEE SMALLWOOD Provider Consulted: BAY SAHNI Consult reason:: rectal anastomotic stricture History of Present Illness Admission Date/PCP: 01/18/20 20:11 RENEE SMALLWOOD MD History of Present Illness: ECHO CARTAGENA is a 64 year old maleECHO CARTAGENA is a 64 year old male Patient is a 64-year-old white male, 2-month status post endoscopic evaluation of his rectal stump. Patient is 2 years status post low anterior resection, neoadjuvant chemo radiation therapy with protective ileostomy. Surgery was performed at [facility]. No medical records, including operative notes, available at this time. there is no evidence of recurrent disease, with recent xray studies and recent endoscopic bx. He was evaluated for ileostomy takedown, however was found to have a near stenosis of his anastomosis likely complicated by pelvic radiation. Therefore his ileostomy has been maintained. 2 months ago proctoscopy was performed , and he was found to have a 4 to 5 cm anal pocket, near stricture, with a hole opening,and scope was unable to be advance past stricture. proximally. biopsies were performed showed no evidence of recurrent cancer. Now the patient is admitted to the hospital with increased feculent drainage per anus increased ileostomy output, dehydration and acute kidney injury. Feels better after having evacuated a significant amount of liquid stool per anus. Past Medical History Cardiac Medical History: Reports: Peripheral Vascular Disease Denies: Coronary Artery Disease, Myocardial Infarction, Hypertension Pulmonary Medical History: Denies: Asthma, Bronchitis, Chronic Obstructive Pulmonary Disease (COPD), Pneumonia Neurological Medical History: Denies: Seizures Malignancy Medical History: Reports: Colorectal Cancer Musculoskeltal Medical History: Reports: Other - History of rib fractures Denies: Arthritis Psychiatric Medical History: Denies: Depression Hematology: Reports: Anemia Past Surgical History Past Surgical History: Reports: Ileostomy, Other - low anterior rescection for rectal cancer Social History Lives with: Family - With and 3 grandchildren Smoking Status: Former Smoker Electronic Cigarette use?: No Number of Years Smokin Last Time Smoked: 2017 Frequency of Alcohol Use: None Hx Recreational Drug Use: No Drugs: None Hx Prescription Drug Abuse: No Family History Family History: None, Reviewed & Not Pertinent Parental Family History Reviewed: No Children Family History Reviewed: NA Sibling(s) Family History Reviewed.: NA Medication/Allergy Home Medications: Lorazepam [Ativan 1 mg Tablet] 1 mg PO BID 01/19/20 Megestrol Acetate [Megace [place] 400 mg/10 ml Udcup] 20 ml PO DAILY 01/19/20 Oxycodone HCl [Oxy-Ir 5 mg Tablet] 10 mg PO BID 01/19/20 Allergies/Adverse Reactions: No Known Allergies Allergy (Verified 11/06/19 07:09) Review of Systems Constitutional: PRESENT: anorexia, fatigue, weakness, weight loss Eyes: ABSENT: visual disturbances Ears: ABSENT: hearing changes Nose, Mouth, and Throat: ABSENT: as per HPI, headache(s), mouth pain, sore throat, vertigo, other Breasts: ABSENT: as per HPI, other Cardiovascular: ABSENT: as per HPI, chest pain, dyspnea on exertion, edema, orthropnea, palpitations, other Respiratory: ABSENT: as per HPI, cough, dyspnea, hemoptysis, sputum, other Gastrointestinal: PRESENT: abdominal pain, bloating, constipation, heartburn, nausea Genitourinary: ABSENT: as per HPI, difficulty urinating, dysuria, hematuria, nocturia, other Musculoskeletal: ABSENT: as per HPI, back pain, deformity, joint swelling, muscle weakness, other Integumentary: ABSENT: as per HPI, diaphoresis, erythema, lesions, pruritus, rash, wounds, other Neurological: ABSENT: as per HPI, abnormal gait, abnormal movements, abnormal speech, confusion, convulsions, dizziness, focal weakness, frequent falls, lack of coordination, memory loss, numbness, paresthesias, restless legs, syncope, tingling, tremor(s), vertigo, weakness, other Psychiatric: PRESENT: anxiety Endocrine: ABSENT: as per HPI, cold intolerance, flushing, heat intolerance, menstrual abnormalities, polydipsia, polyphagia, polyuria, other Hematologic/Lymphatic: ABSENT: as per HPI, easy bleeding, easy bruising, lymphadenopathy, other Allergic/Immunologic: ABSENT: as per HPI, seasonal rhinorrhea, other Physical Exam Vital Signs: Temp Pulse Resp BP Pulse Ox 98.5 F 100 17 136/79 H 100 01/21/20 00:11 01/21/20 02:00 01/21/20 00:11 01/21/20 00:11 01/21/20 00:11 Intake & Output 01/20/20 01/21/2020 06:59 06:59 06:59 Intake Total 2590 1860 Output Total 400 1400 Balance 2190 460 Weight 54.4 kg 55 kg General appearance: PRESENT: no acute distress, thin Head exam: PRESENT: atraumatic Eye exam: PRESENT: EOMI Ear exam: PRESENT: normal external ear exam Mouth exam: PRESENT: moist Neck exam: PRESENT: full ROM Respiratory exam: PRESENT: clear to auscultation meli Cardiovascular exam: PRESENT: RRR Pulses: PRESENT: normal radial pulses, normal femoral pulses Vascular exam: PRESENT: normal capillary refill Breast: PRESENT: Normal GI/Abdominal exam: PRESENT: soft, other - scaphoid abd stoma (ileostomy in rt lower quadrent, pink, functional Rectal exam: PRESENT: deferred Extremities exam: PRESENT: full ROM Musculoskeletal exam: PRESENT: full ROM Neurological exam: PRESENT: alert, awake, oriented to person, oriented to place, oriented to time Psychiatric exam: PRESENT: anxious Skin exam: PRESENT: dry Results Laboratory Results: 01/21/20 04:55 01/21/20 04:55 01/21/20 01/21/20 04:55 04:55 WBC 7.5 RBC 3.32 L Hgb 10.4 L Hct 29.3 L MCV 88 MCH 31.2 MCHC 35.4 RDW 14.1 H Plt Count 210 Seg Neutrophils % 65.4 Sodium 135.3 L Potassium 3.5 L Chloride 108 H Carbon Dioxide 17 L Anion Gap 10 BUN 29 H Creatinine 1.77 H Est GFR ( Amer) 47 L Glucose 84 Calcium 8.4 Magnesium 1.8 Total Bilirubin 0.4 AST 30 Alkaline Phosphatase 41 Total Protein 7.0 Albumin 3.5 Impressions: Abdomen/Pelvis CT 01/18/20 00:00 IMPRESSION: 1. RIGHT LOWER QUADRANT ILEOSTOMY. CONTRAST PRESENT IN THE SMALL BOWEL AND IN THE OSTOMY BAG. NO CONTRAST VISUALIZED IN THE COLON. 2. OTHER CHRONIC FINDINGS ABOVE. NO OTHER SIGNIFICANT OR ACUTE ABDOMINAL PROCESS. Renal Ultrasound 01/20/20 00:00 IMPRESSION: 1. No hydronephrosis. 2. Small bilateral hypodense renal lesions, likely cysts but incompletely characterized on the left. 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 this is not a complete stricture, but appeares to intermittently drain however the pt remains constantly bloated and afraid to eat much causing the anorexia and abd pain recommendation 1. would do a dye study via the rectum and eval the anastomosis if there is any opeining, wound consider dilation of the anastomosis. if it cannot be dilated then pt would need a surgical revision vs abdominal colectomy I will order the rectal constrast study this am and pt could be discharged home after with a f/u with me.
--- NOTE | 2020-01-21 09:42 | PDOC PROGRESS REPORT ---
Subjective Progress Note for:: 01/21/20 Subjective:: Patient states that he is feeling much better. However, he states that he ate too much yesterday and now has increased abdominal pain and poor appetite this morning. Overall, he feels he is stable for discharge. Reason For Visit: ROSANA,HYPERKALEMIA,DEHYDRATION Physical Exam Vital Signs: Temp Pulse Resp BP Pulse Ox 97.5 F 76 21 H 135/79 H 100 01/21/20 08:12 01/21/20 08:12 01/21/20 08:12 01/21/20 08:12 01/21/20 08:12 Intake & Output 01/20/20 01/21/20 01/22/20 06:59 06:59 06:59 Intake Total 2590 1860 Output Total 400 1400 Balance 2190 460 Weight 54.4 kg 55 kg General appearance: PRESENT: no acute distress, thin Head exam: PRESENT: normocephalic Eye exam: PRESENT: EOMI Mouth exam: PRESENT: moist Teeth exam: PRESENT: poor dentation Respiratory exam: PRESENT: unlabored Neurological exam: PRESENT: alert, awake Psychiatric exam: PRESENT: appropriate affect Skin exam: PRESENT: normal color Results Laboratory Results: 01/21/20 04:55 01/21/20 04:55 01/21/20 01/21/20 04:55 04:55 WBC 7.5 RBC 3.32 L Hgb 10.4 L Hct 29.3 L MCV 88 MCH 31.2 MCHC 35.4 RDW 14.1 H Plt Count 210 Seg Neutrophils % 65.4 Sodium 135.3 L Potassium 3.5 L Chloride 108 H Carbon Dioxide 17 L Anion Gap 10 BUN 29 H Creatinine 1.77 H Est GFR ( Amer) 47 L Glucose 84 Calcium 8.4 Magnesium 1.8 Total Bilirubin 0.4 AST 30 Alkaline Phosphatase 41 Total Protein 7.0 Albumin 3.5 Impressions: Abdomen/Pelvis CT 01/18/20 00:00 IMPRESSION: 1. RIGHT LOWER QUADRANT ILEOSTOMY. CONTRAST PRESENT IN THE SMALL BOWEL AND IN THE OSTOMY BAG. NO CONTRAST VISUALIZED IN THE COLON. 2. OTHER CHRONIC FINDINGS ABOVE. NO OTHER SIGNIFICANT OR ACUTE ABDOMINAL PROCESS. Renal Ultrasound 01/20/20 00:00 IMPRESSION: 1. No hydronephrosis. 2. Small bilateral hypodense renal lesions, likely cysts but incompletely characterized on the left. Assessment & Plan - Diagnosis (1) History of colorectal cancer Is this a current diagnosis for this admission?: Yes Plan: Currently with no evidence of disease. (2) Malnutrition Qualifiers: Malnutrition type: protein-calorie malnutrition Protein-calorie malnutrition severity: severe Is this a current diagnosis for this admission?: Yes Plan: I have encouraged him to eat as much as possible and increase his activity level. (3) Rectal discharge Is this a current diagnosis for this admission?: Yes Plan: This was discussed with Dr. Dumont at length. He suggests a rectal dye study to determine further function of the colon. I agree. I agree with plans for discharge later today. - Time Time Spent with patient: 15-24 minutes
[2020-01-21] MEDS ORDERED: POTASSIUM CHLORIDE 10 MEQ TABLET.ER PO SCH (10:00)
[2020-01-21] MEDS: MEGESTROL ACETATE 20 MG TABLET PO SCH (10:23)
--- NOTE | 2020-01-21 14:09 | RADIOLOGY REPORT (SQ) ---
EXAM DESCRIPTION: BARIUM ENEMA IMAGES COMPLETED DATE/TIME: 01/21/2020 12:34 pm REASON FOR STUDY: r/o anastomotic stricture . COMPARISON: CT abdomen and pelvis 01/18/2020 FLUOROSCOPY TIME: 5.1 minutes of fluoroscopy was used. 40 images saved to PACS. TECHNIQUE: Following retrograde filling of the colon with water soluble contrast, fluoroscopic spot and overhead imaging of the colon was obtained and saved to PACS. LIMITATIONS: None. FINDINGS: [employer]IST KUB: Non obstructive bowel gas pattern. Ileostomy can be seen overlying the right l ower quadrant. Bilateral iliac stents are in place. Patient's rectum was cannulized with a 24 Romanian Polanco catheter. Gastrografin was instilled into the colon extending to the level of the cecum. The rectal pouch is relatively short and anastomosis was cannulized with the Polanco catheter. There appears to be mild narrowing of the anastomosis without e vidence of extravasation or leak. A 2nd area of narrowing is seen approximately 6 cm proximal to the anastomosis. The descending portion of the colon is narrow in caliber to the level of the splenic f lexure. The mucosa is ahaustral in appearance without evidence of ulceration or masses. The remaind er of the colon is normal in appearance. There is moderate amount of stool within the cecum and asce nding colon. There is retrograde filling of the appendix which does extend in close proximity to the area of the anastomosis. Multiple contrast filled tubular structures are identified adjacent to the cecum of unknown origin. POST EVAC: Partial evacuation of contrast. OTHER: No other significant finding. IMPRESSION: 1. NARROWING OF THE COLORECTAL ANASTOMOSIS WITHOUT EVIDENCE OF EXTRAVASATION OR LEAK. 2ND AREA OF NARROWING 6 CM PROXIMAL TO THE ANASTOMOSIS, AGAIN IS MILD. 2. DESCENDING PORTION OF THE COLON IS NARROW IN CALIBER WITH AHAUSTRAL APPEARANCE WHICH COULD BE REL ATED TO RADIATION THERAPY ALTHOUGH INFLAMMATORY CHANGES CANNOT BE ENTIRELY RULED OUT. 3. CONTRAST FILLED TUBULAR STRUCTURES ADJACENT TO THE CECUM AND APPENDIX OF UNKNOWN ORIGIN. COMMENT: Quality ID [id number]: Final reports for procedures using fluoroscopy that document radiation exp osure indices, or exposure time and number of fluorographic images (if radiation exposure indices are not available) TECHNICAL DOCUMENTATION: JOB ID: [id number] [employer]- All Rights Reserved Reading location - IP/workstation name: [email or web address] [id number]
--- NOTE | 2020-01-21 18:01 | PDOC DISCHARGE SUMMARY ---
Impression - Admit/DC Date/PCP Admission Date/Primary Care Provider: 01/18/20 20:11 RENEE SMALLWOOD MD Discharge Date: 01/21/20 - Discharge Diagnosis (1) Acute renal failure Is this a current diagnosis for this admission?: Yes (2) Rectal/anal stenosis Is this a current diagnosis for this admission?: Yes (3) Dehydration Is this a current diagnosis for this admission?: Yes (4) Cachexia Is this a current diagnosis for this admission?: Yes (5) History of colorectal cancer Is this a current diagnosis for this admission?: Yes (6) Hyperkalemia Is this a current diagnosis for this admission?: Yes (7) Malnutrition Is this a current diagnosis for this admission?: Yes - Assessment Summary: Continue fluids. Renal failure. Hyperkalemia has resolved on a.m. labs. Creatinine seems to be improving Discussed case with surgery who recommends no intervention at this time. Refer to surgery's notes. 01/20/2020 Patient is able to eat small as he is loose diarrhea from his anus has almost fully resolved at this point. According to surgery, it seems he had a rectal stricture which may be starting to open up his BM via the anus. He denies fever or chills. His renal function seems to be improving down to 2.1 but has reached a river. He states that his fluids were no change in a timely manner after each bag finished yesterday. I will bolus a bag of normal saline and continue on continuous normal saline infusion. Check another BMP tomorrow Renal ultrasound obtained Nephrology consulted Encourage patient to continue to try to eat Continue Megace Check C. difficile - Additional Information Discharge Diet: Regular Discharge Activity: Activity As Tolerated Referrals: RENEE SMALLWOOD MD [Primary Care Provider] - Follow up as needed BAY SAHNI MD [ACTIVE STAFF] - Prescriptions: Potassium Chloride 20 meq PO DAILY #15 [email or web address] Home Medications: Lorazepam [Ativan 1 mg Tablet] 1 mg PO BID 01/19/20 Megestrol Acetate [Megace [place] 400 mg/10 ml Udcup] 20 ml PO DAILY 01/19/20 Oxycodone HCl [Oxy-Ir 5 mg Tablet] 10 mg PO BID 01/19/20 Potassium Chloride 20 meq PO DAILY #15 [email or web address] 09/01/20 History of Present Illiness History of Present Illness: According to admitting provider: ECHO CARTAGENA is a 64 year old male past medical history of colorectal cancer, status post chemoradiation and diverting ileostomy x2 years presenting to ED complaining of excessive feculent material expressed from his rectum, low appetite, weakness, and insomnia for the last 4 days. Patient is stating that he has already finished with his chemoradiation 2 years ago and he is cancer free, as part of his treatment he had a diverting ileostomy which was supposed to be reanastomosed but unfortunately the residual bowel became necrotic and patient was unable to be reanastomosed. Patient is stating that he used to get mucousy discharge from his rectum which he was told that was normal, however recently he has noticed that he is expressing fecal material from his rectum which is unusual to him. Patient also endorsing very low appetite and is stating that he is afraid to eat because whenever he eats his fecal discharge increases from his rectum " it just goes through me". Patient denies any headache, fever, chills, chest pain, shortness of breath, nausea, vomiting, abdominal pain, recent sick contact, being exposed to anybody with COVID-like symptoms. As per patient he is in remission and his last chemo-radiation was 2 years ago. In ED he was noted to have leukocytosis, hyperkalemia, elevated creatinine, mildly elevated lipase, CT abdomen pelvis with oral contrast showed right lower quadrant ileostomy, contrast present in the small bowel all in the ostomy bag. No contrast visualized in the colon. Dr. Patel from surgery was consulted and as per ED physician he stated that patient could be admitted here and he could be consulted. Hospital Course Hospital Course: Patient essentially presented due to surgical related issue of having stool evacuation from his anus. He has history of colorectal surgery with diverting end ileostomy and essentially a blind pouch of his ascending colon. However he had rectoanal stricture which was causing him to retain stool in his large intestine. However he just started voiding through his anal opening as his stricture seems to be intermittently opening up to allow evacuation of stool that has been there for likely since. He was admitted to the medical service because he was noted to be dehydrated. His creatinine was also elevated with suspicion for renal failure. No recent baseline have been obtained. He was given IV fluids. His kidney function improved. He was initially hyperkalemic due to renal failure but subsequently has become hypokalemic at this time. Will actually even discharged with low-dose potassium chloride supplements. He was evaluated by surgery who indicated that no intervention was needed. Today surgeon recommended barium enema study which was performed and wants patient to follow-up with him in the clinic. Patient is scared of eating but has been encouraged and reassured that he is okay to eat even if he continues to intermittently have evacuation of stool from his anal opening. Physical Exam Vital Signs: Temp Pulse Resp BP Pulse Ox 97.6 F 79 19 148/83 H 100 01/21/20 12:44 01/21/20 14:00 01/21/20 12:44 01/21/20 12:44 01/21/20 12:44 Intake & Output 01/20/20 01/21/20 01/22/20 06:59 06:59 06:59 Intake Total 2590 1860 1000 Output Total 400 1400 Balance 2190 460 1000 Weight 54.4 kg 55 kg General appearance: PRESENT: no acute distress, cooperative, thin Respiratory exam: PRESENT: unlabored Musculoskeletal exam: PRESENT: ambulatory Neurological exam: PRESENT: alert, awake, oriented to person, oriented to place, oriented to time Results Laboratory Results: WBC 7.5 10^3/uL (4.0-10.5) 01/21/20 04:55 RBC 3.32 10^6/uL (4.35-5.55) L 01/21/20 04:55 Hgb 10.4 g/dL (13.5-17.0) L 01/21/20 04:55 Hct 29.3 % (37.9-51.0) L 01/21/20 04:55 MCV 88 fl (80-97) 01/21/20 04:55 MCH 31.2 pg (27.0-33.4) 01/21/20 04:55 MCHC 35.4 g/dL (32.0-36.0) 01/21/20 04:55 RDW 14.1 % (11.5-14.0) H 01/21/20 04:55 Plt Count 210 10^3/uL (150-450) 01/21/20 04:55 Lymph % (Auto) 21.4 % (13-45) 01/21/20 04:55 Elliott % (Auto) 9.1 % (3-13) 01/21/20 04:55 Eos % (Auto) 2.7 % (0-6) 01/21/20 04:55 Baso % (Auto) 1.4 % (0-2) 01/21/20 04:55 Absolute Neuts (auto) 4.9 10^3/uL (1.7-8.2) 01/21/20 04:55 Absolute Lymphs (auto) 1.6 10^3/uL (0.5-4.7) 01/21/20 04:55 Absolute Monos (auto) 0.7 10^3/uL (0.1-1.4) 01/21/20 04:55 Absolute Eos (auto) 0.2 10^3/uL (0.0-0.6) 01/21/20 04:55 Absolute Basos (auto) 0.1 10^3/uL (0.0-0.2) 01/21/20 04:55 Seg Neutrophils % 65.4 % (42-78) 01/21/20 04:55 Sodium 135.3 mmol/L (137-145) L 01/21/20 04:55 Potassium 3.5 mmol/L (3.6-5.0) L 01/21/20 04:55 Chloride 108 mmol/L (98-107) H 01/21/20 04:55 Carbon Dioxide 17 mmol/L (22-30) L 01/21/20 04:55 Anion Gap 10 (5-19) 01/21/20 04:55 BUN 29 mg/dL (7-20) H 01/21/20 04:55 Creatinine 1.77 mg/dL (0.52-1.25) H 01/21/20 04:55 Est GFR ( Amer) 47 (>60) L 01/21/20 04:55 Est GFR (MDRD) Non-Af 39 (>60) L 01/21/20 04:55 Glucose 84 mg/dL (75-110) 01/21/20 04:55 Calcium 8.4 mg/dL (8.4-10.2) 01/21/20 04:55 Phosphorus 4.2 mg/dL (2.5-4.5) 01/19/20 05:31 Magnesium 1.8 mg/dL (1.6-2.3) 01/21/20 04:55 Total Bilirubin 0.4 mg/dL (0.2-1.3) 01/21/20 04:55 Direct Bilirubin 0.2 mg/dL (0.0-0.4) 01/21/20 04:55 Neonat Total Bilirubin Not Reportable 01/21/20 04:55 Neonat Direct Bilirubin Not Reportable 01/21/20 04:55 Neonat Indirect Bili Not Reportable 01/21/20 04:55 AST 30 U/L (17-59) 01/21/20 04:55 ALT 19 U/L (<50) 01/21/20 04:55 Alkaline Phosphatase 41 U/L (38-126) 01/21/20 04:55 Total Protein 7.0 g/dL (6.3-8.2) 01/21/20 04:55 Albumin 3.5 g/dL (3.5-5.0) 01/21/20 04:55 Lipase 358.2 U/L (23-300) H 01/18/20 13:44 Urine Color YELLOW 01/18/20 17:15 Urine Appearance CLEAR 01/18/20 17:15 Urine pH 5.0 (5.0-9.0) 01/18/20 17:15 Ur Specific [place] 1.023 01/18/20 17:15 Urine Protein 100 mg/dL (NEGATIVE) H 01/18/20 17:15 Urine Glucose (UA) NEGATIVE mg/dL (NEGATIVE) 01/18/20 17:15 Urine Ketones NEGATIVE mg/dL (NEGATIVE) 01/18/20 17:15 Urine Blood MODERATE (NEGATIVE) H 01/18/20 17:15 Urine Nitrite NEGATIVE (NEGATIVE) 01/18/20 17:15 Urine Bilirubin NEGATIVE (NEGATIVE) 01/18/20 17:15 Urine Urobilinogen NEGATIVE mg/dL (<2.0) 01/18/20 17:15 Ur Leukocyte Esterase NEGATIVE (NEGATIVE) 01/18/20 17:15 Urine WBC (Auto) 0 /HPF 01/18/20 17:15 Urine RBC (Auto) 0 /HPF 01/18/20 17:15 Squamous Epi Cells Auto <1 /HPF 01/18/20 17:15 Urine Mucus (Auto) RARE /LPF 01/18/20 17:15 Urine Sodium 35 mmol/L (30-90) 01/18/20 17:15 Urine Ascorbic Acid NEGATIVE (NEGATIVE) 01/18/20 17:15 POC Stool Occult Blood POSITIVE (NEGATIVE) 01/18/20 14:33 Stl C. Difficile GDH Ag NEGATIVE (NEGATIVE) 01/21/20 02:43 Stl C.difficile Tox A&B NEGATIVE (NEGATIVE) 01/21/20 02:43 Impressions: Abdomen/Pelvis CT 01/18/20 00:00 IMPRESSION: 1. RIGHT LOWER QUADRANT ILEOSTOMY. CONTRAST PRESENT IN THE SMALL BOWEL AND IN THE OSTOMY BAG. NO CONTRAST VISUALIZED IN THE COLON. 2. OTHER CHRONIC FINDINGS ABOVE. NO OTHER SIGNIFICANT OR ACUTE ABDOMINAL PROCESS. Renal Ultrasound 01/20/20 00:00 IMPRESSION: 1. No hydronephrosis. 2. Small bilateral hypodense renal lesions, likely cysts but incompletely characterized on the left. Barium Enema 01/21/20 00:00 IMPRESSION: 1. NARROWING OF THE COLORECTAL ANASTOMOSIS WITHOUT EVIDENCE OF EXTRAVASATION OR LEAK. 2ND AREA OF NARROWING 6 CM PROXIMAL TO THE ANASTOMOSIS, AGAIN IS MILD. 2. DESCENDING PORTION OF THE COLON IS NARROW IN CALIBER WITH AHAUSTRAL APPEARANCE WHICH COULD BE RELATED TO RADIATION THERAPY ALTHOUGH INFLAMMATORY CHANGES CANNOT BE ENTIRELY RULED OUT. 3. CONTRAST FILLED TUBULAR STRUCTURES ADJACENT TO THE CECUM AND APPENDIX OF UNKNOWN ORIGIN. Plan Time Spent: Greater than 30 Minutes Stroke Is this a Stroke Patient?: No Acute Heart Failure - Is this a Heart Failure Patient?: No
[2020-01-21 18:34] VITALS: BP 153/80
== END 2020-01-21 19:46 | disposition home or self-care (01) | DRG 682 ==
LOC: ER 13:02 → EH 20:11 → 4N 22:04
PROVIDERS: ADMIT Internal Medicine; ATTEND Internal Medicine
DX: N17.9 Acute kidney failure, unspecified (principal); E43 Unspecified severe protein-calorie malnutrition; R64 Cachexia; E87.2 Acidosis; E87.1 Hypo-osmolality and hyponatremia; Z68.1 Body mass index [BMI] 19.9 or less, adult; K62.89 Other specified diseases of anus and rectum; K62.4 Stenosis of anus and rectum; E86.0 Dehydration; E87.5 Hyperkalemia; I73.9 Peripheral vascular disease, unspecified; Z93.2 Ileostomy status; Z85.038 Personal history of other malignant neoplasm of large intestine; Z90.49 Acquired absence of other specified parts of digestive tract
CPT/HCPCS: 36415; 74176; 74270; 76770; 80053; 81001; 82270; 83690; 83735; 84100; 84300; 85025; 85027; 87324; 87449; 96361; 96374; 99285; J2270; J7030; J7060

== ENCOUNTER 2020-02-20 08:03 | Day surgery (SDC) | payer OTHER ==
[2020-02-20] MEDS ORDERED: FENTANYL CITRATE INJ/PF 100 MCG/2 ML AMPUL ONE (09:20)
[2020-02-20] MEDS ORDERED: PROPOFOL INJ 200 MG/20 ML VIAL IV ONE (09:21)
[2020-02-20] MEDS ORDERED: MIDAZOLAM 2 MG/2 ML INJ ONE (09:21)
[2020-02-20] MEDS ORDERED: PROMETHAZINE HCL INJ 25 MG/1 ML VIAL IV PRN ×2 (10:04)
[2020-02-20] MEDS ORDERED: DIPHENHYDRAMINE HCL 50 MG/ML VIAL IV PRN (10:04)
[2020-02-20] MEDS ORDERED: ONDANSETRON HCL INJ/PF 4 MG/2 ML SDV IV PRN (10:04)
[2020-02-20] MEDS ORDERED: MEPERIDINE HCL/PF INJ 25 MG/1 ML DISP.SYRIN IV PRN (10:04)
[2020-02-20] MEDS ORDERED: FENTANYL CITRATE INJ/PF 100 MCG/2 ML AMPUL IV PRN ×3 (10:04)
--- NOTE | 2020-02-20 10:26 | Operative Report ---
Nonrecallable Operative Report DATE OF SURGERY: 02/20/20 PREOPERATIVE DIAGNOSIS: history or rectal cancer POSTOPERATIVE DIAGNOSIS: History of rectal cancer OPERATION: Exam under anesthesia rectal biopsies SURGEON: BAY SAHNI ANESTHESIA: GA TISSUE REMOVED OR ALTERED: Rectal biopsies COMPLICATIONS: None ESTIMATED BLOOD LOSS: 5 cc INTRAOPERATIVE FINDINGS: See note PROCEDURE: Procedure patient was brought to the operating awake alert stable condition placed on the operative table supine position placed under general anesthesia. He was placed up in a high lithotomy position. After proper timeout site verification the procedure commenced. Digital examination the rectal revealed a long tunnel anus to what appeared to be a stenotic rectum. I was unable to pass the tip of my index finger into the rectum. However there was a small orifice that I could visualize using the flexible sigmoidoscope. There was a tight stricture about point 4 cm in diameter that firm and photodocumentation was obtained. Using the flexible sigmoidoscope against the stricture with the biopsy forceps through the proctoscope we are able to obtain circumferential rectal biopsies. His were sent in formalin to pathology. This stenosis was firm and appeared to be malignant and therefore the biopsies were sent. This completed the procedure the patient was awakened in the operating room transferred recovery in stable condition. Estimated blood loss procedure was less than 25 cc sponge needle counts correct x2
--- NOTE | 2020-02-20 10:27 | Discharge Summary ---
Discharge Summary (SDC) - Discharge Final Diagnosis: History of rectal cancer Date of Surgery: 02/20/20 Discharge Date: 02/20/20 Condition: Good Referrals: JIMBO DIA MD [Primary Care Provider] - Discharge Diet: As Tolerated Discharge Activity: Activity As Tolerated Report the Following to Your Physician Immediately: Increase in Pain, Unusual Bleeding - Patient is to follow-up with me in 10 to 14 days
[2020-02-20] MEDS ORDERED: ONDANSETRON HCL INJ/PF 4 MG/2 ML SDV ONE (11:41)
[2020-02-20] MEDS ORDERED: SUCCINYLCHOLINE CHLORIDE INJ 200 MG/10 ML VIAL ONE (11:41)
[2020-02-20] MEDS ORDERED: LIDOCAINE 2% INJ-PF (20 MG/ML) 2 ML AMPUL ONE (11:41)
[2020-02-20 13:58] VITALS: BP 140/97
== END 2020-02-20 12:10 | disposition home or self-care (01) ==
LOC: OROUT 08:03
PROVIDERS: ATTEND Surgery
DX: K62.4 Stenosis of anus and rectum (principal); Z85.048 Personal history of other malignant neoplasm of rectum, rectosigmoid junction, and anus; K62.89 Other specified diseases of anus and rectum; E87.1 Hypo-osmolality and hyponatremia; R64 Cachexia; F41.9 Anxiety disorder, unspecified; R19.8 Other specified symptoms and signs involving the digestive system and abdomen; E78.00 Pure hypercholesterolemia, unspecified; Z03.818 Encounter for observation for suspected exposure to other biological agents ruled out; Z85.05 Personal history of malignant neoplasm of liver; Z92.21 Personal history of antineoplastic chemotherapy; Z92.3 Personal history of irradiation; Z93.2 Ileostomy status; Z90.49 Acquired absence of other specified parts of digestive tract; Z79.899 Other long term (current) drug therapy
CPT/HCPCS: 87635; 88342 ×2; 88305 ×2; 00811; 45331; J2250; J3010; J0330; J2405; J2704; J3490; C9803; 811